=== PATIENT | female | born 1965 | race Two or more races ===

== ENCOUNTER 2016-10-08 17:19 | Inpatient (IN) | payer OTHER ==
[2016-10-08 17:47] LABS: Hematocrit 46 % (35-47); Hemoglobin 15.4 g/dl (12.0-16.0); Mean Corpuscular HGB Conc 34 g/dl (31-36); Mean Corpuscular Hemoglobin 31 pg (27-31); Mean Corpuscular Volume 93 fL (80-97); Mean Platelet Volume 8 um3 (7.4-10.4); Red Blood Count 4.92 10^6/ul (4.0-5.4); Red Cell Distribution Width 14 % (10.5-15); White Blood Count 8.8 10^3/ul (3.5-10.8)
[2016-10-08 18:02] LABS: Urine Bacteria 1+ (Absent); Urine Bilirubin Negative (Negative); Urine Glucose Negative (Negative); Urine Nitrite Negative (Negative)
[2016-10-08 18:03] LABS: ALT 23 U/L (7-52); AST 26 U/L (13-39); Albumin 4.5 g/dL (3.2-5.2); Alkaline Phosphatase 61 U/L (34-104); Anion Gap 10 mmol/L (2-11); Blood Urea Nitrogen 12 mg/dL (6-24); CO2 Carbon Dioxide 28 mmol/L (22-32); Calcium 9.6 mg/dL (8.6-10.3); Chloride 101 mmol/L (101-111); EGFR African American 89.8 (>60); EGFR Non-African American 69.8 (>60); Globulin 3.6 g/dL (2-4); Glucose 129 mg/dL (70-100); Potassium 3.1 mmol/L (3.5-5.0); Sodium 139 mmol/L (133-145); Total Protein 8.1 g/dL (6.4-8.9)
[2016-10-08 18:04] LABS: Benzodiazepine Urine Screen Presumptive Positive (None Detect)
[2016-10-08 18:11] LABS: Acetaminophen < 15 mcg/mL; Alcohol < 10 mg/dL (<10); Salicylate < 2.50 mg/dL (<30)
[2016-10-08 18:22] LABS: TSH (Thyroid Stimulating Horm) 2.77 mcIU/mL (0.34-5.60)
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
[2016-10-09] MEDS ORDERED: Al Hydrox/Mg Hydrox/Simet LIQ* 30 ML UDC PO PRN (00:33)
--- NOTE | 2016-10-09 16:02 | ADMNOTE ---
Identification - Identify Employment Status: Unemployed Hx Psychiatric Hospitalization: Yes Arrived to Hospital Via: Law Enforcement History - Objective HPI: 51 y/o female unknown to this hospital was BIB local police for disorganized/ bizarre behaviors in the community. During the assessment she talked about an strange man from [facility] in [place] to communicating with her via electronic devices, TV and radio telling her to go to places and do staffs. She is pressured, tangential with frequent flight s of ideas. Exam Appearance: Obese Hygiene: Normal Grooming: Fairly Well Kept Psychomotor Activities: Abnormal-Increased Exhibits Abnormal Movement: No Attitude and Relatedness: Cooperative Eye Contact: Good - Speech Quality: Pressured Latencies: Short Quantity: Copious Patient's Decription of Mood: "Great" Observed Affect: Expansive Affect Consistent with: Euphoria Patient's Thought Process: Coherent, Loose Associations, Tangential, Over Inclusive Thought Content: No Passive Wish, No Suicidal Planning, No Homicidal Ideation, No Paranoid Ideation Experiencing Hallucinations: No, Sensorium is Clear Type of Hallucinations: Visual: No, Auditory: No, Command: No Level of Consciousness: Alert Orientation: Yes Intact, Yes Orientated to Time, Yes Orientated to Place, Yes Orientated to Person Impulse Control: Intact Insight and Judgement: Poor Impression - Impression Merits Inpatient Hospitalization: Yes - [place] Mental Illness: Psychosis NOS. R/O Schizoaffective d/o - [place] III Medical Illness: Obesity Plan - Treatment Plan Continued Medication Management: Consider Medication Medications: Current Medications Al Hydrox/Mg Hydrox/Simethicone (Maalox Plus*) 30 ml PO Q4H PRN PRN Reason: INDIGESTION - Discharge Plan Discharge Plan: Consider Longer Term Tx
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
--- NOTE | 2016-10-10 13:31 | PN ---
Subjective - Subjective Service Type: 26546 Hosp care 15 min low complexity Subjective: No change in her disorganized thoughts and behaviors. Walking around with face musk to avoid pollutants on the unit. Continues to talk with peers about her mission to advise people to avoid medicines and try harbal remidies as commanded by an unknown doctor tuan Ortiz. Objective - Appearance Appearance: Obese Dysmorphic Features: No Hygiene: Normal Grooming: Fairly Well Kept - Behavior Psychomotor Activities: Abnormal-Increased - Attitude and Relatedness Attitude and Relatedness: Cooperative Eye Contact: Fair - Speech Quality: Pressured Latencies: Short Quantity: Terse - Mood Patient's Decription of Mood: "Fine" - Affect Observed Affect: Expansive Affect Consistent with: Euphoria - Thought Process Patient's Thought Process: Coherent, Disorganized, Loose Associations, Tangential, Filght of Ideas, Over Inclusive Thought Content: No Passive Wish, No Suicidal Planning, No Homicidal Ideation, No Paranoid Ideation - Sensorium Experiencing Hallucinations: Yes Type of Hallucinations: Visual: No, Auditory: Yes, Command: Yes - Level of Consciousness Level of Consciousness: Alert Orientation: Yes Intact, Yes Orientated to Time, Yes Orientated to Place, Yes Orientated to Person - Impulse Control Impulse Control: Tenuous - Insight and Judgement Insight and Judgement: Impaired - Group Participation Particating in Group Activities: No - Medication Management Medication Management Adherence: No Assessment - Assessment Merits Inpatient Hospitalization: For Immediate Safety, Diagnosis Determination , To Initiate Treatment, For Ongoing Evaluation Plan - Plan Treatment Plan: Name: GUERLINE HORN Birthdate: 1965 [id number] Continued Medication Management: Consider Medication Medications: Current Medications Al Hydrox/Mg Hydrox/Simethicone (Maalox Plus*) 30 ml PO Q4H PRN PRN Reason: INDIGESTION - Discharge Plan Discharge Plan: Consider Longer Term Tx
--- NOTE | 2016-10-11 12:01 | PN ---
Subjective - Subjective Service Type: 62683 Hosp care 15 min low complexity Subjective: Anila still has pressured speech expressing a tangential thought process. She denies any history of tio. She requests I gather information from her TEST LEAD APPLICATION TESTING María Stahl at [facility], and her friend Jack Cheng here in [place]. She continues to state she only wants herbal remedies, talks of a good effect of [place] on lipids and hypertension, mint and herbal tea for pain. Objective - Appearance Appearance: Healthy Appearing Dysmorphic Features: No Hygiene: Normal Grooming: Disheveled - Behavior Psychomotor Activities: Normal Exhibits Abnormal Movement: No - Attitude and Relatedness Attitude and Relatedness: Psychotically Related Eye Contact: Fair - Speech Quality: Pressured Latencies: Short Quantity: Copious - Mood Patient's Decription of Mood: "Fine" - Affect Observed Affect: Expansive - Thought Process Patient's Thought Process: Disorganized Thought Content: No Passive Wish, No Suicidal Planning, No Homicidal Ideation, No Paranoid Ideation - Sensorium Experiencing Hallucinations: No, Sensorium is Clear Type of Hallucinations: Visual: No, Auditory: No, Command: No - Level of Consciousness Level of Consciousness: Alert Orientation: Yes Intact, Yes Orientated to Time, Yes Orientated to Place, Yes Orientated to Person - Impulse Control Impulse Control: Intact - Insight and Judgement Insight and Judgement: Impaired - Group Participation Particating in Group Activities: Yes - Medication Management Medication Management Adherence: Yes Assessment - Assessment Merits Inpatient Hospitalization: For Immediate Safety, For Stabilization, To Initiate Treatment, For Ongoing Evaluation, For Discharge Planning, Pending Safe DC Plan Inpatient DSM-IV Dx: Psychosis NOS, r/o schizophrenia vs schizoaffective disorder Clinical Impression: Anila has been admitted for tio and disorganized behavior, culminating in entering a stranger's house and feeding her teacup chihuahua cat food found there. Police came, got her to the ED, and she has been in care here since then. She remains pleasantly tangential into her tio and delusions. We are in the process of gathering collateral to inform our treatment and discharge plan. She has so far refused antipsychotic and antimanic medications, but these need to be offered to break her tio, however pleasant it may be. Will revisit this with her after learning from [facility] providers past treatments. Plan - Plan Treatment Plan: Name: ANILA HORN Birthdate: 1965 [id number] Gather collateral. Offer antimanic medication. Encourage groups and milieu. Organize discharge plan per collateral. Continued Medication Management: Start Medication Medications: Current Medications Al Hydrox/Mg Hydrox/Simethicone (Maalox Plus*) 30 ml PO Q4H PRN PRN Reason: INDIGESTION - Discharge Plan Discharge Plan: Outpatient Follow Up
[2016-10-12] MEDS ORDERED: Nicotine Inhaler* 10 MG AMP INH PRN (17:39)
[2016-10-12] MEDS ORDERED: Metoprolol Succinate XL TAB* 25 MG PO ONE (17:43)
--- NOTE | 2016-10-12 21:07 | PN ---
Subjective - Subjective Service Type: 83638 Hosp care 15 min low complexity Subjective: Anila is again today manic and delusional, though pleasantly so. Objective - Mood Patient's Decription of Mood: "Fine" - Affect Observed Affect: Good Affect Consistent with: Euphoria - Thought Process Patient's Thought Process: Coherent, Goal Directed, Tangential Thought Content: No Passive Wish, No Suicidal Planning, No Homicidal Ideation, No Paranoid Ideation - Sensorium Experiencing Hallucinations: No, Sensorium is Clear Type of Hallucinations: Visual: No, Auditory: No, Command: No - Level of Consciousness Level of Consciousness: Alert Orientation: Yes Intact, Yes Orientated to Time, Yes Orientated to Place, Yes Orientated to Person - Impulse Control Impulse Control: Intact - Insight and Judgement Insight and Judgement: Impaired - Group Participation Particating in Group Activities: Yes - Medication Management Medication Management Adherence: Yes Assessment - Assessment Merits Inpatient Hospitalization: For Immediate Safety, For Stabilization, To Initiate Treatment, For Ongoing Evaluation, For Discharge Planning, Pending Safe DC Plan Inpatient DSM-IV Dx: Psychosis NOS, r/o schizophrenia vs schizoaffective disorder Clinical Impression: Anila has been admitted for tio and disorganized behavior, culminating in entering a stranger's house and feeding her teacup chihuahua cat food found there. Police came, got her to the ED, and she has been in care here since then. She remains pleasantly tangential into her tio and delusions. We are in the process of gathering collateral to inform our treatment and discharge plan. She has so far refused antipsychotic and antimanic medications, but these need to be offered to break her tio, however pleasant it may be. Will revisit this with her after learning from [facility] providers past treatments. Today Anila again declines starting any antipsychotic or antimanic agent, citing allergic reactions to past med trials. Will defer on med trials until further information obtained from [facility]. No return call from them today in response ot message left with their medical office receptionist assistant staff. Plan - Plan Treatment Plan: Name: ANILA HORN Birthdate: 1965 [id number] Gather collateral. Offer antimanic medication. Encourage groups and milieu. Organize discharge plan per collateral. Continued Medication Management: Start Medication Medications: Current Medications Al Hydrox/Mg Hydrox/Simethicone (Maalox Plus*) 30 ml PO Q4H PRN PRN Reason: INDIGESTION Levothyroxine Sodium (Synthroid Tab*) 50 mcg PO DAILY@0600 CHELI Metoprolol Succinate (Toprol Xl Tab*) 50 mg PO DAILY CHELI Nicotine (Nicotine Inhaler*) 10 mg INH Q2H PRN PRN Reason: CRAVING - Discharge Plan Discharge Plan: Outpatient Follow Up
[2016-10-13] MEDS: Levothyroxine TAB* 50 MCG TAB PO SCH (06:09)
[2016-10-13] MEDS: Metoprolol Succinate XL TAB* 50 MG PO SCH (09:19)
--- NOTE | 2016-10-13 11:34 | PN ---
[facility]: Group Therapy Note - Service Type Service Type: 24487 Group Psychotherapy - Cognitive Behavioral Therapy (CBT): Patient presents with high volume of speech that impresses as being coherent within the context of self-report, but is tangential and off topic in group context. Concerns regarding disorganization of thought are apparent.
[2016-10-13] MEDS: Lithium Carbonate TAB* 300 MG PO SCH ×2 (12:30→20:11)
--- NOTE | 2016-10-13 14:06 | PN ---
Subjective - Subjective Service Type: 05672 Hosp care 15 min low complexity Subjective: Anila continues to present mostly with pressured speech into delusional thought processes. She remains pleasant and collaborative, though with her delusions impairing full collaboration. She has agreed to a trial of lithium against tio. Records obtained from treaters at [facility] indicate that she has been treated there with working diagnoses of anxiety disorder nos and personality disorder nos. Clinicians there felt they had not heard from her of sufficient symptoms of tio to merit a bipolar diagnosis, though they understood from her in their 2014 and 2015 assessments that she had treatment fo bipolar disorder in 2008. Assessment of [place] was supportive of bipolar diagnosis. Report of Jace Berger PHD also supportive of bipolar diagnosis. Objective - Appearance Appearance: Obese Dysmorphic Features: No Hygiene: Normal Grooming: Well Kept - Behavior Psychomotor Activities: Normal Exhibits Abnormal Movement: No - Attitude and Relatedness Attitude and Relatedness: Cooperative Eye Contact: Good - Speech Quality: Pressured Latencies: Normal Quantity: Copious - Mood Patient's Decription of Mood: "Good" - Affect Observed Affect: Fair Affect Consistent with: Euthymia - Thought Process Patient's Thought Process: Tangential Thought Content: No Passive Wish, No Suicidal Planning, No Homicidal Ideation, No Paranoid Ideation - Sensorium Experiencing Hallucinations: No, Sensorium is Clear Type of Hallucinations: Visual: No, Auditory: No, Command: No - Level of Consciousness Level of Consciousness: Alert Orientation: Yes Intact, Yes Orientated to Time, Yes Orientated to Place, Yes Orientated to Person - Impulse Control Impulse Control: Intact - Insight and Judgement Insight and Judgement: Impaired - Group Participation Particating in Group Activities: Yes - Medication Management Medication Management Adherence: Yes Assessment - Assessment Merits Inpatient Hospitalization: For Immediate Safety, For Stabilization, To Initiate Treatment, For Ongoing Evaluation, For Discharge Planning, Pending Safe DC Plan Inpatient DSM-IV Dx: Psychosis NOS, r/o schizophrenia vs schizoaffective disorder Clinical Impression: Anila has been admitted for tio and disorganized behavior, culminating in entering a stranger's house and feeding her teacup chihuahua cat food found there. Police came, got her to the ED, and she has been in care here since then. She remains pleasantly tangential into her tio and delusions. We are in the process of gathering collateral to inform our treatment and discharge plan. She has so far refused antipsychotic and antimanic medications, but these need to be offered to break her tio, however pleasant it may be. Will revisit this with her after learning from [facility] providers past treatments. 10.12.16 Anila again declines starting any antipsychotic or antimanic agent, citing allergic reactions to past med trials. Will defer on med trials until further information obtained from [facility]. No return call from them today in response ot message left with their receptionist nurse staff. 10.13.16 Anila agrees to trial of Li+ after reviewing very low risk of allergic reaction to a cation. [facility] clinicians' reports indicate anxiety and personality disorder, but do not report tangential and delusional thought processes as we are seeing from her. Reports of agencies in [facility] involved in DSS assessments give report of mental status similar to here, and support bipolar diagnosis. She remains manic, but pleasant. Unable to collaborate well due to tangential thought process. Still seeks discharge with no insight into continued need for care due to safety concerns raised by erratic and potentially dangerous behavior. Collateral report from family indicates they do not want contact due to her lying to them and stealing from them. Reports received from [place] agencies indicate legal history of 3 months incarceration fo kidnapping a nephew in 2008 , the year where other records indicate treatment for bipolar disorder. Plan - Plan Treatment Plan: Name: ANILA HORN Birthdate: 1965 [id number] Start lithium. Encourage groups and milieu. Dispo per hospital course, with possible need for treatment over objection or terminal gauger supervisor care per acceptance of need for and response to medication trials. Continued Medication Management: Different Medication Medications: Current Medications Al Hydrox/Mg Hydrox/Simethicone (Maalox Plus*) 30 ml PO Q4H PRN PRN Reason: INDIGESTION Levothyroxine Sodium (Synthroid Tab*) 50 mcg PO DAILY@0600 [facility] Last Admin: 10/13/16 06:09 Dose: 50 mcg [place] Carbonate ([place] Carbonate Tab*) 300 mg PO BID [facility] Last Admin: 10/13/16 12:30 Dose: 300 mg Metoprolol Succinate (Toprol Xl Tab*) 50 mg PO DAILY [facility] Last Admin: 10/13/16 09:19 Dose: 50 mg Nicotine (Nicotine Inhaler*) 10 mg INH Q2H PRN PRN Reason: CRAVING - Discharge Plan Discharge Plan: Consider Longer Term Tx
[2016-10-14] MEDS: Levothyroxine TAB* 50 MCG TAB PO SCH (06:09)
[2016-10-14] MEDS: Metoprolol Succinate XL TAB* 50 MG PO SCH (08:56)
[2016-10-14] MEDS: Lithium Carbonate TAB* 300 MG PO SCH ×2 (08:56→21:05)
[2016-10-14] MEDS ORDERED: Montelukast Sodium TAB* 10 MG PO SCH (09:00)
--- NOTE | 2016-10-14 12:37 | PN ---
Subjective - Subjective Service Type: 98915 Hosp care 15 min low complexity Subjective: Reported by staff that a visit with her mother and stepfather went well, that they retrieved medications and a tablet pc from her car. She wants to use tablet to communicate with Dr Evangelista Payne in [facility] via instant messaging. She reports Dr Payne is in love with her and sent her on a romantic scavenger bear. She reports reduced SWIFT from initial complaint yesterday afternoon. She attributes to the lithium SWIFT, foaming at the mouth in her sleep, and insomnia with q2hr awakenings. She reports "I don't have a problem with my thoughts. I just get excited when I 'm in distress." Agrees to commence trial of Seroquel tonight. Objective - Appearance Appearance: Obese Dysmorphic Features: No Hygiene: Normal Grooming: Fairly Well Kept - Behavior Psychomotor Activities: Normal Exhibits Abnormal Movement: No - Attitude and Relatedness Attitude and Relatedness: Cooperative Eye Contact: Fair - Speech Quality: Pressured Latencies: Normal Quantity: Copious - Mood Patient's Decription of Mood: "Fine" - Affect Observed Affect: Fair Affect Consistent with: Euthymia - Thought Process Patient's Thought Process: Tangential - but redirectable Thought Content: No Passive Wish, No Suicidal Planning, No Homicidal Ideation, No Paranoid Ideation - Sensorium Experiencing Hallucinations: No, Sensorium is Clear Type of Hallucinations: Visual: No, Auditory: No, Command: No - Level of Consciousness Orientation: Yes Intact, Yes Orientated to Time, Yes Orientated to Place, Yes Orientated to Person - Impulse Control Impulse Control: Intact - Insight and Judgement Insight and Judgement: Impaired - Group Participation Particating in Group Activities: Yes - Medication Management Medication Management Adherence: Yes Assessment - Assessment Merits Inpatient Hospitalization: For Immediate Safety, For Stabilization, Diagnosis Determination, To Initiate Treatment, For Ongoing Evaluation, For Discharge Planning, Pending Safe DC Plan Inpatient DSM-IV Dx: Psychosis NOS, r/o schizophrenia vs schizoaffective disorder Clinical Impression: Anila has been admitted for tio and disorganized behavior, culminating in entering a stranger's house and feeding her teacup chihuahua cat food found there. Police came, got her to the ED, and she has been in care here since then. She remains pleasantly tangential into her tio and delusions. We are in the process of gathering collateral to inform our treatment and discharge plan. She has so far refused antipsychotic and antimanic medications, but these need to be offered to break her tio, however pleasant it may be. Will revisit this with her after learning from [facility] providers past treatments. 10.12.16 Anila again declines starting any antipsychotic or antimanic agent, citing allergic reactions to past med trials. Will defer on med trials until further information obtained from [facility]. No return call from them today in response ot message left with their administrative assistant receptionist staff. 10.13.16 Anila agrees to trial of Li+ after reviewing very low risk of allergic reaction to a cation. [facility] clinicians' reports indicate anxiety and personality disorder, but do not report tangential and delusional thought processes as we are seeing from her. Reports of agencies in [facility] involved in DSS assessments give report of mental status similar to here, and support bipolar diagnosis. She remains manic, but pleasant. Unable to collaborate well due to tangential thought process. Still seeks discharge with no insight into continued need for care due to safety concerns raised by erratic and potentially dangerous behavior. Collateral report from family indicates they do not want contact due to her lying to them and stealing from them. Reports received from [place] agencies indicate legal history of 3 months incarceration fo kidnapping a nephew in 2008 , the year where other records indicate treatment for bipolar disorder. 10.14.16 Anila complains of SWIFT, foaming at mouth in her sleep, and awakening q2hrs after taking lithium. She agrees to a trial of Seroquel, starting at a low 50 mg dose. She remains pleasant and collaborative. Plan - Plan Treatment Plan: Name: ANILA HORN Birthdate: 1965 [id number] Start Seroquel, continue lithium. Gather collateral. Encourage groups and milieu. Dispo per hospital course. Continued Medication Management: Different Medication Medications: Current Medications Al Hydrox/Mg Hydrox/Simethicone (Maalox Plus*) 30 ml PO Q4H PRN PRN Reason: INDIGESTION Levothyroxine Sodium (Synthroid Tab*) 50 mcg PO DAILY@0600 [facility] Last Admin: 10/14/16 06:09 Dose: 50 mcg [place] Carbonate ([place] Carbonate Tab*) 300 mg PO BID [facility] Last Admin: 10/14/16 08:56 Dose: 300 mg Metoprolol Succinate (Toprol Xl Tab*) 50 mg PO DAILY [facility] Last Admin: 10/14/16 08:56 Dose: 50 mg Nicotine (Nicotine Inhaler*) 10 mg INH Q2H PRN PRN Reason: CRAVING - Discharge Plan Discharge Plan: Outpatient Follow Up
[2016-10-14] MEDS: Cyanocobalamin TAB* 500 MCG PO SCH (13:35)
[2016-10-14] MEDS: Ferrous Sulfate TAB* 325 MG PO SCH (13:35)
[2016-10-14] MEDS: Nystatin TOP POWDER* 15 GM BTL TOPICAL SCH (13:36)
[2016-10-14] MEDS: Olopatadine 0.1% OPHTH (NF) 1 DROP BTL BOTH EYES SCH ×2 (13:36→21:06)
[2016-10-14] MEDS: Montelukast Sodium TAB* 10 MG PO SCH (13:38)
[2016-10-14] MEDS: QUEtiapine TAB* 25 MG PO SCH (21:05)
[2016-10-15] MEDS: Levothyroxine TAB* 75 MCG TAB PO SCH (06:12)
[2016-10-15] MEDS: Montelukast Sodium TAB* 10 MG PO SCH (08:32)
[2016-10-15] MEDS: Lithium Carbonate TAB* 300 MG PO SCH ×2 (08:32→21:14)
[2016-10-15] MEDS: Metoprolol Succinate XL TAB* 100 MG PO SCH (08:32)
[2016-10-15] MEDS: Ferrous Sulfate TAB* 325 MG PO SCH (08:32)
[2016-10-15] MEDS: Cyanocobalamin TAB* 500 MCG PO SCH (08:32)
[2016-10-15] MEDS: Nystatin TOP POWDER* 15 GM BTL TOPICAL SCH (08:39)
[2016-10-15] MEDS: Olopatadine 0.1% OPHTH (NF) 1 DROP BTL BOTH EYES SCH ×2 (09:44→21:22)
[2016-10-15] MEDS: QUEtiapine TAB* 25 MG PO SCH (21:14)
[2016-10-16] MEDS: Levothyroxine TAB* 75 MCG TAB PO SCH (07:33)
[2016-10-16] MEDS: Montelukast Sodium TAB* 10 MG PO SCH (09:09)
[2016-10-16] MEDS: Lithium Carbonate TAB* 300 MG PO SCH ×2 (09:09→20:45)
[2016-10-16] MEDS: Metoprolol Succinate XL TAB* 100 MG PO SCH (09:09)
[2016-10-16] MEDS: Nystatin TOP POWDER* 15 GM BTL TOPICAL SCH (09:09)
[2016-10-16] MEDS: Ferrous Sulfate TAB* 325 MG PO SCH (09:10)
[2016-10-16] MEDS: Cyanocobalamin TAB* 500 MCG PO SCH (09:10)
[2016-10-16] MEDS: Olopatadine 0.1% OPHTH (NF) 1 DROP BTL BOTH EYES SCH ×2 (09:30→21:01)
[2016-10-16] MEDS: QUEtiapine TAB* 25 MG PO SCH (20:45)
[2016-10-17] MEDS: Levothyroxine TAB* 75 MCG TAB PO SCH (06:01)
[2016-10-17] MEDS: Ferrous Sulfate TAB* 325 MG PO SCH (10:06)
[2016-10-17] MEDS: Cyanocobalamin TAB* 500 MCG PO SCH (10:06)
[2016-10-17] MEDS: Montelukast Sodium TAB* 10 MG PO SCH (10:06)
[2016-10-17] MEDS: Lithium Carbonate TAB* 300 MG PO SCH ×2 (10:06→20:16)
[2016-10-17] MEDS: Metoprolol Succinate XL TAB* 100 MG PO SCH (10:06)
[2016-10-17] MEDS: Nystatin TOP POWDER* 15 GM BTL TOPICAL SCH (10:07)
[2016-10-17] MEDS: Olopatadine 0.1% OPHTH (NF) 1 DROP BTL BOTH EYES SCH ×2 (10:24→20:18)
--- NOTE | 2016-10-17 15:36 | PN ---
Subjective - Subjective Service Type: 18323 Hosp care 15 min low complexity Subjective: Ms. Horn reports that she may be incontinent due to deep sleep from Seroquel. Otherwise not much change of thoughts and mood. Somatic in a way and have a lot of questions. Conversation about her current real or imaginary boyfriend and her ex- is never ending and changes her good mood to severe dysphoria. Objective - Appearance Appearance: Obese Dysmorphic Features: No Hygiene: Normal Grooming: Well Kept - Behavior Psychomotor Activities: Normal Exhibits Abnormal Movement: No - Attitude and Relatedness Attitude and Relatedness: Cooperative Eye Contact: Good - Speech Quality: Pressured Latencies: Short Quantity: Copious - Mood Patient's Decription of Mood: "Okay" - Affect Observed Affect: Expansive - Thought Process Patient's Thought Process: Coherent, Loose Associations, Tangential, Filght of Ideas Thought Content: No Passive Wish, No Suicidal Planning, No Homicidal Ideation, No Paranoid Ideation - Sensorium Experiencing Hallucinations: No, Sensorium is Clear Type of Hallucinations: Visual: No, Auditory: No, Command: No - Level of Consciousness Level of Consciousness: Alert Orientation: Yes Intact, Yes Orientated to Time, Yes Orientated to Place, Yes Orientated to Person - Impulse Control Impulse Control: Intact - Insight and Judgement Insight and Judgement: Poor - Group Participation Particating in Group Activities: Yes - Medication Management Medication Management Adherence: Yes Assessment - Assessment Merits Inpatient Hospitalization: For Stabilization, For Discharge Planning Inpatient DSM-IV Dx: Psychosis NOS, r/o schizophrenia vs schizoaffective disorder Clinical Impression: Ms. Horn remains pressured and disorganized and will require further stabilization. Plan - Plan Treatment Plan: Name: GUERLINE HORN Birthdate: 1965 [id number] Continued Medication Management: Continue Outpt Medication Medications: Current Medications Al Hydrox/Mg Hydrox/Simethicone (Maalox Plus*) 30 ml PO Q4H PRN PRN Reason: INDIGESTION Cyanocobalamin (Vitamin B12 Tab*) 1,000 mcg PO DAILY [facility] Last Admin: 10/17/16 10:06 Dose: 1,000 mcg Ferrous Sulfate (Ferrous Sulfate Tab*) 325 mg PO DAILY [facility] Last Admin: 10/17/16 10:06 Dose: 325 mg Levothyroxine Sodium (Synthroid Tab*) 75 mcg PO DAILY@0600 [facility] Last Admin: 10/17/16 06:01 Dose: 75 mcg [place] Carbonate ([place] Carbonate Tab*) 300 mg PO BID [facility] Last Admin: 10/17/16 10:06 Dose: 300 mg Metoprolol Succinate (Toprol Xl Tab*) 100 mg PO DAILY [facility] Last Admin: 10/17/16 10:06 Dose: 100 mg Montelukast Sodium (Singulair Tab*) 10 mg PO 0900 [facility] Last Admin: 10/17/16 10:06 Dose: 10 mg Nicotine (Nicotine Inhaler*) 10 mg INH Q2H PRN PRN Reason: CRAVING Nystatin (Nystatin Top Powder*) 1 applic TOPICAL DAILY [facility] Last Admin: 10/17/16 10:07 Dose: Not Given Olopatadine HCl (Patanol 0.1% Ophth (Nf)) 1 drop BOTH EYES BID [facility] PRN Reason: Protocol Last Admin: 10/17/16 10:24 Dose: Not Given Quetiapine Fumarate (Seroquel Tab*) 150 mg PO BEDTIME [facility] PRN Reason: Taper Stop: 10/27/16 20:59 Last Admin: 10/16/16 20:45 Dose: 150 mg - Discharge Plan Discharge Plan: Outpatient Follow Up Additional Comments: TBD
[2016-10-17] MEDS: QUEtiapine TAB* 25 MG PO SCH (20:17)
[2016-10-18] MEDS: Lithium Carbonate TAB* 300 MG PO SCH ×2 (07:51→20:10)
[2016-10-18] MEDS: Metoprolol Succinate XL TAB* 100 MG PO SCH (07:51)
[2016-10-18] MEDS: Ferrous Sulfate TAB* 325 MG PO SCH (07:51)
[2016-10-18] MEDS: Montelukast Sodium TAB* 10 MG PO SCH (07:51)
[2016-10-18] MEDS: Levothyroxine TAB* 75 MCG TAB PO SCH (07:51)
[2016-10-18] MEDS: Cyanocobalamin TAB* 500 MCG PO SCH (07:51)
[2016-10-18] MEDS: Nystatin TOP POWDER* 15 GM BTL TOPICAL SCH (12:19)
[2016-10-18] MEDS: Olopatadine 0.1% OPHTH (NF) 1 DROP BTL BOTH EYES SCH ×2 (12:20→19:53)
[2016-10-18] MEDS: QUEtiapine TAB* 25 MG PO SCH (20:10)
[2016-10-19] MEDS: Levothyroxine TAB* 75 MCG TAB PO SCH (06:30)
[2016-10-19] MEDS: Cyanocobalamin TAB* 500 MCG PO SCH (08:27)
[2016-10-19] MEDS: Metoprolol Succinate XL TAB* 100 MG PO SCH (08:27)
[2016-10-19] MEDS: Montelukast Sodium TAB* 10 MG PO SCH (08:27)
[2016-10-19] MEDS: Lithium Carbonate TAB* 300 MG PO SCH ×2 (08:27→20:59)
[2016-10-19] MEDS: Ferrous Sulfate TAB* 325 MG PO SCH (08:28)
[2016-10-19] MEDS: Olopatadine 0.1% OPHTH (NF) 1 DROP BTL BOTH EYES SCH ×2 (10:38→20:59)
[2016-10-19] MEDS: Nystatin TOP POWDER* 15 GM BTL TOPICAL SCH (10:38)
--- NOTE | 2016-10-19 15:43 | PN ---
Subjective - Subjective Service Type: 29518 Hosp care 15 min low complexity Subjective: Anila remains free of any insight into her delusions. She still reports being on a romantic scavenger bear directed by an MD in [facility] named Evangelista Payne. An attempt was made last evening to verify this report by the patient's reported method of communicating with this man via instant messaging on her ipad , but she was unable to remain focused on that task. Today she reports feeling oversedated by Seroquel at 200 mg nightly dose, but she is still delusional and with pressured speech. She remains largely pleasant, but states today that if she is not discharged so that she can go back to [place] to take a new job, buy (or sell?) a house, and regain custody of her teenage son, she will no longer cooperate with care here. The option of intermodal dispatcher care in a [facility] hospital was broached with her today: she was opposed to this plan to ensure her safety and continued care as she recovers from her psychotic tio. She is compliant with meds., meals and groups. At around 3 pm, she complained of chest pain and an EKG was ordered. Objective - Appearance Appearance: Obese Dysmorphic Features: No Hygiene: Normal Grooming: Fairly Well Kept - Behavior Psychomotor Activities: Normal Exhibits Abnormal Movement: No - Attitude and Relatedness Attitude and Relatedness: Cooperative Eye Contact: Good - Speech Quality: Pressured Latencies: Normal Quantity: Copious - Mood Patient's Decription of Mood: "Upset" - at continued hospitalization - Affect Observed Affect: Fair Affect Consistent with: Euthymia - Thought Process Patient's Thought Process: Tangential Thought Content: No Passive Wish, No Suicidal Planning, No Homicidal Ideation, No Paranoid Ideation - Sensorium Experiencing Hallucinations: No, Sensorium is Clear Type of Hallucinations: Visual: No, Auditory: No, Command: No - Level of Consciousness Level of Consciousness: Alert Orientation: Yes Intact, Yes Orientated to Time, Yes Orientated to Place, Yes Orientated to Person - Impulse Control Impulse Control: Intact - Insight and Judgement Insight and Judgement: Impaired - Group Participation Particating in Group Activities: Yes - Medication Management Medication Management Adherence: Yes Assessment - Assessment Merits Inpatient Hospitalization: For Immediate Safety, For Stabilization, For Ongoing Evaluation, For Discharge Planning, Pending Safe DC Plan Inpatient DSM-IV Dx: Psychosis NOS, r/o schizophrenia vs schizoaffective disorder Clinical Impression: Anila has been admitted for tio and disorganized behavior, culminating in entering a stranger's house and feeding her teacup chihuahua cat food found there. Police came, got her to the ED, and she has been in care here since then. She remains pleasantly tangential into her tio and delusions. We are in the process of gathering collateral to inform our treatment and discharge plan. She has so far refused antipsychotic and antimanic medications, but these need to be offered to break her tio, however pleasant it may be. Will revisit this with her after learning from [facility] providers past treatments. 10.12.16 Anila again declines starting any antipsychotic or antimanic agent, citing allergic reactions to past med trials. Will defer on med trials until further information obtained from [facility]. No return call from them today in response ot message left with their dice person staff. 10.13.16 Anila agrees to trial of Li+ after reviewing very low risk of allergic reaction to a cation. [facility] clinicians' reports indicate anxiety and personality disorder, but do not report tangential and delusional thought processes as we are seeing from her. Reports of agencies in [facility] involved in DSS assessments give report of mental status similar to here, and support bipolar diagnosis. She remains manic, but pleasant. Unable to collaborate well due to tangential thought process. Still seeks discharge with no insight into continued need for care due to safety concerns raised by erratic and potentially dangerous behavior. Collateral report from family indicates they do not want contact due to her lying to them and stealing from them. Reports received from [place] agencies indicate legal history of 3 months incarceration fo kidnapping a nephew in 2008 , the year where other records indicate treatment for bipolar disorder. 10.14.16 nAila complains of SWIFT, foaming at mouth in her sleep, and awakening q2hrs after taking lithium. She agrees to a trial of Seroquel, starting at a low 50 mg dose. She remains pleasant and collaborative. 1.4.17 Continued delusions, though pleasant. Getting frustrated at length of stay as we await improved mental status and contemplate transfer to intermodal dispatcher care. Complained of chest pain today, reporting history of bi-, tri-, and quadrigeminy known to [facility] treaters: no signs of this on EKG, read as normal. Plan - Plan Treatment Plan: Name: ANILA HORN Birthdate: 1965 [id number] Increase Seroquel to 300 mg, continue lithium and check level tomorrow mornin. Gather collateral. Encourage groups and milieu. Dispo per hospital course: contemplating state referral. Medications: Current Medications Al Hydrox/Mg Hydrox/Simethicone (Maalox Plus*) 30 ml PO Q4H PRN PRN Reason: INDIGESTION Cyanocobalamin (Vitamin B12 Tab*) 1,000 mcg PO DAILY [facility] Last Admin: 10/19/16 08:27 Dose: 1,000 mcg Ferrous Sulfate (Ferrous Sulfate Tab*) 325 mg PO DAILY [facility] Last Admin: 10/19/16 08:28 Dose: 325 mg Levothyroxine Sodium (Synthroid Tab*) 75 mcg PO DAILY@0600 [facility] Last Admin: 10/19/16 06:30 Dose: 75 mcg [place] Carbonate ([place] Carbonate Tab*) 300 mg PO BID [facility] Last Admin: 10/19/16 08:27 Dose: 300 mg Metoprolol Succinate (Toprol Xl Tab*) 100 mg PO DAILY [facility] Last Admin: 10/19/16 08:27 Dose: 100 mg Montelukast Sodium (Singulair Tab*) 10 mg PO 0900 [facility] Last Admin: 10/19/16 08:27 Dose: 10 mg Nicotine (Nicotine Inhaler*) 10 mg INH Q2H PRN PRN Reason: CRAVING Nystatin (Nystatin Top Powder*) 1 applic TOPICAL DAILY [facility] Last Admin: 10/19/16 10:38 Dose: Not Given Olopatadine HCl (Patanol 0.1% Ophth (Nf)) 1 drop BOTH EYES BID [facility] PRN Reason: Protocol Last Admin: 10/19/16 10:38 Dose: Not Given Quetiapine Fumarate (Seroquel Tab*) 200 mg PO BEDTIME [facility] PRN Reason: Taper Stop: 10/27/16 20:59 Last Admin: 10/18/16 20:10 Dose: 200 mg - Discharge Plan Discharge Plan: Consider Longer Term Tx
[2016-10-19] MEDS ORDERED: QUEtiapine TAB* 25 MG PO SCH (15:46)
[2016-10-20] MEDS: Levothyroxine TAB* 75 MCG TAB PO SCH (06:04)
[2016-10-20] MEDS: Cyanocobalamin TAB* 500 MCG PO SCH (08:13)
[2016-10-20] MEDS: Olopatadine 0.1% OPHTH (NF) 1 DROP BTL BOTH EYES SCH ×2 (08:14→20:52)
[2016-10-20] MEDS: Montelukast Sodium TAB* 10 MG PO SCH (08:14)
[2016-10-20] MEDS: Ferrous Sulfate TAB* 325 MG PO SCH (08:14)
[2016-10-20] MEDS: Metoprolol Succinate XL TAB* 100 MG PO SCH (08:14)
[2016-10-20] MEDS: Lithium Carbonate TAB* 300 MG PO SCH ×2 (08:14→20:34)
[2016-10-20] MEDS: Nystatin TOP POWDER* 15 GM BTL TOPICAL SCH (08:14)
[2016-10-20] MEDS ORDERED: QUEtiapine TAB* 25 MG PO SCH ×2 (09:39→09:52)
[2016-10-20] MEDS ORDERED: QUEtiapine TAB* 300 MG PO SCH (21:00)
[2016-10-21] MEDS: Levothyroxine TAB* 75 MCG TAB PO SCH (06:09)
[2016-10-21 07:42] VITALS: BP 135/72
[2016-10-21] MEDS: Nystatin TOP POWDER* 15 GM BTL TOPICAL SCH (09:15)
[2016-10-21] MEDS: Cyanocobalamin TAB* 500 MCG PO SCH (09:15)
[2016-10-21] MEDS: Lithium Carbonate TAB* 300 MG PO SCH (09:16)
[2016-10-21] MEDS: Ferrous Sulfate TAB* 325 MG PO SCH (09:16)
[2016-10-21] MEDS: Metoprolol Succinate XL TAB* 100 MG PO SCH (09:18)
[2016-10-21] MEDS: Olopatadine 0.1% OPHTH (NF) 1 DROP BTL BOTH EYES SCH (09:46)
[2016-10-21] MEDS: Montelukast Sodium TAB* 10 MG PO SCH (09:48)
--- NOTE | 2016-10-21 13:41 | DS ---
Subjective - Subjective Service Types: [id number] [facility] Day Mgmt simple under 30 min Discharge Date: 10/21/16 Subjective: Ms Strickland reports insight into her erratic behavior prior to hospitalization, such as entering a stranger's home. She reports she sees this as psychotic behavior and is committed to not repeating this behavior. She denies today as she has throughout this hospitalization any dangerous intent or plan. She denies also any subjective experience of psychosis. Only current physical complaint is SWIFT, worst upon awakening, better as the day wears on. Objective - Appearance Appearance: Well Developed/Nourished, Obese Dysmorphic Features: No Hygiene: Normal Grooming: Fairly Well Kept - Behavior Psychomotor Activities: Normal Exhibits Abnormal Movement: No - Attitude and Relatedness Attitude and Relatedness: Cooperative Eye Contact: Good - Speech Quality: Unpressured Latencies: Normal Quantity: Appropriate - Mood Patient's Decription of Mood: "Fine" - Affect Observed Affect: Good Affect Consistent with: Euthymia - Thought Process Patient's Thought Process: Coherent, Goal Directed Thought Content: No Passive Wish, No Suicidal Planning, No Homicidal Ideation, No Paranoid Ideation - Sensorium Experiencing Hallucinations: No, Sensorium is Clear Type of Hallucinations: Visual: No, Auditory: No, Command: No - Impulse Control Impulse Control: Intact - Insight and Judgement Insight and Judgement: Fair - Group Participation Particating in Group Activities: Yes - Medication Management Medication Management Adherence: Yes Treatment Course & Assessment Clinical Course & Impression: Anila has been admitted for tio and disorganized behavior, culminating in entering a stranger's house and feeding her teacup chihuahua cat food found there. Police came, got her to the ED, and she has been in care here since then. She remains pleasantly tangential into her tio and delusions. We are in the process of gathering collateral to inform our treatment and discharge plan. She has so far refused antipsychotic and antimanic medications, but these need to be offered to break her tio, however pleasant it may be. Will revisit this with her after learning from [facility] providers past treatments. 10.12.16 Anila again declines starting any antipsychotic or antimanic agent, citing allergic reactions to past med trials. Will defer on med trials until further information obtained from [facility]. No return call from them today in response ot message left with their concrete batcher staff. 10.13.16 Anila agrees to trial of Li+ after reviewing very low risk of allergic reaction to a cation. [facility] clinicians' reports indicate anxiety and personality disorder, but do not report tangential and delusional thought processes as we are seeing from her. Reports of agencies in [facility] involved in DSS assessments give report of mental status similar to here, and support bipolar diagnosis. She remains manic, but pleasant. Unable to collaborate well due to tangential thought process. Still seeks discharge with no insight into continued need for care due to safety concerns raised by erratic and potentially dangerous behavior. Collateral report from family indicates they do not want contact due to her lying to them and stealing from them. Reports received from [place] agencies indicate legal history of 3 months incarceration fo kidnapping a nephew in 2008 , the year where other records indicate treatment for bipolar disorder. 10.14.16 Anila complains of SWIFT, foaming at mouth in her sleep, and awakening q2hrs after taking lithium. She agrees to a trial of Seroquel, starting at a low 50 mg dose. She remains pleasant and collaborative. ..17 Continued delusions, though pleasant. Getting frustrated at length of stay as we await improved mental status and contemplate transfer to fpc care. Complained of chest pain today, reporting history of bi-, tri-, and quadrigeminy known to [facility] treaters: no signs of this on EKG, read as normal. .6.17 Anila reports she is ready for discharge today. Objective signs of tio have remitted, with good sleep, no pressured speech or racing thoughts, and good behavioral control with insight expressed as to inappropriateness of entering a stranger's home prior to admission. She has been pleaasant and colllaborative throughout this admission. She is cleared for discharge, assessed as at no acutely increased risk of harm to self or others, and capable of adequate self-care to avoid harm. Mother reports that this is the best she has seen Anila in some time, and has no concerns for her safety at the time of discharge, but is concerned whether she will continue with outpatient care. Anila will remain at chronic risk due to her mental illness that can be reduced by her decision to comply with aftercare. We have reviewed the need to followup with her PCP regarding her hypothyroidism and other medical issues, including headache if it worsens. She will check with [facility] to see if the head imaging done in the past year to assess her sinuses was also read as showing normal brain. She has voiced understanding and acceptance of side effects possible from lithium and Seroquel, and chooses to take these meds now for the expected benefits that she assesses as outweighing risks of side effects. She will return to [place] transported by her mother and father, who will help ensure she gets to the emergency housing available to her there. Darling says she will comply with aftercare arranged for her at [place] [id number]. [facility] Inpatient Hospitalization: No Clear for Discharge: Adequate Clinical Respons, Acceptable Safety Profile, Low Utility of In Care Inpatient DSM-IV Dx: Bipolar affective disorder, MRE manic with psychosis - [place] [facility] Medical Illness: Obesity, hypothyroid - [place] Stressors: dissolved marriage, custody of child, homelessness, limited resources Family: son in foster care - [place] AXP-[id number]-Imagj: 66 Estimate of Highest-Past Year: 66 Discharge Planning - Discharge Planning Discharge Plan: Outpatient Follow Up Outpatient Program: [place] [id number] in [place] Recommendations for Continuing Care: Medication Management, Psychotherapy, Therapeutic Drug Levels - lithium to be checked next week, Primary Care Followup Medications: Cyanocobalamin (Vitamin B12 Tab*) 1,000 mcg PO DAILY [facility] Last Admin: 10/21/16 09:15 Dose: 1,000 mcg Ferrous Sulfate (Ferrous Sulfate Tab*) 325 mg PO DAILY [facility] Last Admin: 10/21/16 09:16 Dose: 325 mg Levothyroxine Sodium (Synthroid Tab*) 75 mcg PO DAILY@0600 [facility] Last Admin: 10/21/16 06:09 Dose: 75 mcg Henry Carbonate (Henry Carbonate Tab*) 450 mg PO BID [facility] Last Admin: 10/21/16 09:16 Dose: 450 mg Metoprolol Succinate (Toprol Xl Tab*) 100 mg PO DAILY [facility] Last Admin: 10/21/16 09:18 Dose: 100 mg Montelukast Sodium (Singulair Tab*) 10 mg PO 0900 [facility] Last Admin: 10/21/16 09:48 Dose: 10 mg Nystatin (Nystatin Top Powder*) 1 applic TOPICAL DAILY [facility] Last Admin: 10/21/16 09:15 Dose: Not Given Olopatadine HCl (Patanol 0.1% Ophth (Nf)) 1 drop BOTH EYES BID [facility] PRN Reason: Protocol Last Admin: 10/21/16 09:46 Dose: Not Given Quetiapine Fumarate (Seroquel Tab*) 300 mg PO BEDTIME [facility] Last Admin: 10/20/16 20:38 Dose: 300 mg Discharge Planning: Prescriptions provided for discharge [xx] Yes [] No Follow up care details as per social work arrangements. Patient response to discharge plan: [x] eager for discharge [x] agreeable with discharge plan [] ambivalent about discharge [] disagrees with discharge today
== END 2016-10-21 14:40 | disposition home or self-care (01) | DRG 885 ==
LOC: ED 17:19 → BSU 10-09 00:27
PROVIDERS: ADMIT Internal Medicine; ATTEND Psychiatry & Neurology Psychiatry
DX: F31.2 Bipolar disorder, current episode manic severe with psychotic features (principal); Z68.41 Body mass index [BMI] 40.0-44.9, adult; E03.9 Hypothyroidism, unspecified; E66.01 Morbid (severe) obesity due to excess calories; Z88.6 Allergy status to analgesic agent; Z88.8 Allergy status to other drugs, medicaments and biological substances
CPT/HCPCS: 36415; 80053; 80178; 80301; 80320; 80329; 81003; 81015; 84443; 85025; 87086; 90853; 93005; 99222; 99231; 99238; A9270-GY; G0479; G0480